=== PATIENT | female | born 1950 | race Caucasian/White ===

== ENCOUNTER 2019-10-18 12:48 | Inpatient (IN) | payer OTHER ==
[~2019-10-18] VITALS: Ht 162.6 cm; Wt 86.2 kg
[~2019-10-18 12:48] MED LIST: PERCOCET 5/3251 TAB PO
[2019-11-23] MEDS ORDERED: TOPROL XL25 M1 PO (09:19)
[2019-11-23] MEDS ORDERED: AVAPRO300 MG PO (09:19)
[2019-11-23] MEDS ORDERED: MULTI VITAMIN1 EACH PO (09:20)
[2019-11-23] MEDS ORDERED: LEVOTHYROXINE25 MCG PO (09:20)
[2019-11-23] MEDS ORDERED: LIPITOR20 MG PO (09:20)
[2019-11-23] MEDS ORDERED: CALCI PO (09:21)
[2019-11-30] MEDS ORDERED: METFORMIN HCL500 M4 PO (08:29)
[2019-11-30] MEDS ORDERED: CALCIUM500 M1 (09:00)
== END 2019-12-02 22:03 | DRG 470 ==
LOC: SURG 11-23 07:15 → O/R 11-30 05:48 → SURH 11-30 05:48 → SURG 11-30 07:15 → SURH 11-30 16:19
PROVIDERS: ADMIT Orthopaedic Surgery
PROC: 0SRC0J9 Replacement of Right Knee Joint with Synthetic Substitute, Cemented, Open Approach (ICD-10-PCS; principal; 2019-11-30 14:15)
DX: M17.11 Unilateral primary osteoarthritis, right knee (principal); D62 Acute posthemorrhagic anemia; I10 Essential (primary) hypertension; E03.8 Other specified hypothyroidism; E11.9 Type 2 diabetes mellitus without complications; Z79.4 Long term (current) use of insulin